=== PATIENT | female | born 1980 ===

== ENCOUNTER → 2018-04-07 | Outpatient (CLI) | payer OTHER ==
--- NOTE | 2018-04-07 13:36 | WOMENS IMAGING REPORT ---
EXAM DESCRIPTION: BILAT DIAGNOSTIC MAMMO W/CAD; U/S BREAST UNILATERAL, COMPL COMPLETED DATE/TIME: 04/07/2018 10:25 am; 04/07/2018 11:01 am REASON FOR STUDY: FIBROCYSTIC BREAST CHANGES OF BOTH BREASTS,N60.11; FIBROCYSTIC BREAST CHANGE, LT BREAST; FIBROCYSTIC BREAST CHANGES, RT BREAST N60.11 DIFFUSE CYSTIC MASTOPATHY OF RIGHT BREAST COMPARISON: None available, prior mammograms are in [place] TECHNIQUE: Standard craniocaudal and mediolateral oblique views of each breast recorded using digita l acquisition. Bilateral 90 mediolateral views Bilateral whole breast ultrasound was also performed LIMITATIONS: None. FINDINGS: RIGHT BREAST MASSES: No suspicious masses. CALCIFICATIONS: No new or suspicious calcifications. ARCHITECTURAL DISTORTION: None. DEVELOPING DENSITY: None. ASYMMETRY: None noted. OTHER: No other significant findings. LEFT BREAST MASSES: No suspicious masses. CALCIFICATIONS: No new or suspicious calcifications. ARCHITECTURAL DISTORTION: None. DEVELOPING DENSITY: None. ASYMMETRY: None noted. OTHER: No other significant finding. Read with the assistance of CAD: .[facility] - R2 Cenova Version 1.3 .[facility] - R2 Cenova Version 1.3 .[facility] - R2 Cenova Version 2.4 .[facility] - R2 Cenova Version 2.4 .[facility] - R2 Certified Forklift Operator Version 9.2 Bilateral breast ultrasound: Patient indicates bilateral breast tenderness with palpable abnormalities. She states she had multip le breast parenchymal cysts on prior ultrasound in [place] within the last 2 years. The entire right breast was image with ultrasound. Dense fibroglandular tissue is present with a 5 m m cyst in the right breast periareolar 6 o'clock position. No other cysts. No masses. No worrisome acoustic absorption. The entire left breast was image with ultrasound. Dense fibroglandular tissue is present. No cysts. No masses. No worrisome acoustic absorption. IMPRESSION: No mammographic or sonographic evidence for malignancy bilaterally. BREAST DENSITY: d. The breasts are extremely dense, which lowers the sensitivity of mammography. BIRAD: 1 Negative. RECOMMENDATION: RECOMMENDED FOLLOW UP: Continue yearly bilateral screening tomosynthesis if possibl e, because of extremely dense fibroglandular tissue bilaterally. SPECIFIC INTERVENTION/IMAGING/CONSULTATION RECOMMENDEDNegative mammography and ultrasound in the sett ing of a suspicious palpable abnormality should not deter biopsy. COMMUNICATION:Patient notified by letter. COMMENT: The patient has been notified of the results by letter per SA requirements. Additional no tification policies are in place for contacting patient with suspicious or incomplete findings. Quality ID #[id number]: The [employer] recommends an annual screening mammogram for women aged 40 years or over. This facility utilizes a reminder system to ensure that all patients receive reminder letters, and/or direct phone calls for appointments. This includes reminders for routine scr eening mammograms, diagnostic mammograms, or other Breast Imaging Interventions when appropriate. Th is patient will be placed in the appropriate reminder system. The [employer] (ACR) has developed recommendations for screening MRI of the breast s in certain patient populations, to be used in conjunction with mammography. Breast MRI surveillanc e may be appropriate for women with more than 20% lifetime risk of developing breast cancer as deter mined by genetic testing, significant family history of the disease, or history of mantle radiation f or Hodgkins Disease. ACR Practice Guidelines 2008. TECHNICAL DOCUMENTATION: FINDING NUMBER: (1) ASSESSMENT: (1) JOB ID: [id number] [employer]- All Rights Reserved Reading location - IP/workstation name: [facility]
--- NOTE | 2018-04-07 13:36 | WOMENS IMAGING REPORT ---
EXAM DESCRIPTION: BILAT DIAGNOSTIC MAMMO W/CAD; U/S BREAST UNILATERAL, COMPL COMPLETED DATE/TIME: 04/07/2018 10:25 am; 04/07/2018 11:01 am REASON FOR STUDY: FIBROCYSTIC BREAST CHANGES OF BOTH BREASTS,N60.11; FIBROCYSTIC BREAST CHANGE, LT BREAST; FIBROCYSTIC BREAST CHANGES, RT BREAST N60.11 DIFFUSE CYSTIC MASTOPATHY OF RIGHT BREAST COMPARISON: None available, prior mammograms are in [place] TECHNIQUE: Standard craniocaudal and mediolateral oblique views of each breast recorded using digita l acquisition. Bilateral 90 mediolateral views Bilateral whole breast ultrasound was also performed LIMITATIONS: None. FINDINGS: RIGHT BREAST MASSES: No suspicious masses. CALCIFICATIONS: No new or suspicious calcifications. ARCHITECTURAL DISTORTION: None. DEVELOPING DENSITY: None. ASYMMETRY: None noted. OTHER: No other significant findings. LEFT BREAST MASSES: No suspicious masses. CALCIFICATIONS: No new or suspicious calcifications. ARCHITECTURAL DISTORTION: None. DEVELOPING DENSITY: None. ASYMMETRY: None noted. OTHER: No other significant finding. Read with the assistance of CAD: .[facility] - R2 Cenova Version 1.3 .[facility] - R2 Cenova Version 1.[address] .[facility] - R2 Cenova Version 2.4 .[facility] - R2 Cenova Version 2.4 .[facility] - R2 Building Cleaner Version 9.2 Bilateral breast ultrasound: Patient indicates bilateral breast tenderness with palpable abnormalities. She states she had multip le breast parenchymal cysts on prior ultrasound in [place] within the last 2 years. The entire right breast was image with ultrasound. Dense fibroglandular tissue is present with a 5 m m cyst in the right breast periareolar 6 o'clock position. No other cysts. No masses. No worrisome acoustic absorption. The entire left breast was image with ultrasound. Dense fibroglandular tissue is present. No cysts. No masses. No worrisome acoustic absorption. IMPRESSION: No mammographic or sonographic evidence for malignancy bilaterally. BREAST DENSITY: d. The breasts are extremely dense, which lowers the sensitivity of mammography. BIRAD: 1 Negative. RECOMMENDATION: RECOMMENDED FOLLOW UP: Continue yearly bilateral screening tomosynthesis if possibl e, because of extremely dense fibroglandular tissue bilaterally. SPECIFIC INTERVENTION/IMAGING/CONSULTATION RECOMMENDEDNegative mammography and ultrasound in the sett ing of a suspicious palpable abnormality should not deter biopsy. COMMUNICATION:Patient notified by letter. COMMENT: The patient has been notified of the results by letter per SA requirements. Additional no tification policies are in place for contacting patient with suspicious or incomplete findings. Quality ID #[id number]: The [employer] recommends an annual screening mammogram for women aged 40 years or over. This facility utilizes a reminder system to ensure that all patients receive reminder letters, and/or direct phone calls for appointments. This includes reminders for routine scr eening mammograms, diagnostic mammograms, or other Breast Imaging Interventions when appropriate. Th is patient will be placed in the appropriate reminder system. The [employer] (ACR) has developed recommendations for screening MRI of the breast s in certain patient populations, to be used in conjunction with mammography. Breast MRI surveillanc e may be appropriate for women with more than 20% lifetime risk of developing breast cancer as deter mined by genetic testing, significant family history of the disease, or history of mantle radiation f or Hodgkins Disease. ACR Practice Guidelines 2008. TECHNICAL DOCUMENTATION: FINDING NUMBER: (1) ASSESSMENT: (1) JOB ID: [id number] [employer]- All Rights Reserved Reading location - IP/workstation name: [facility]
--- NOTE | 2018-04-07 13:36 | WOMENS IMAGING REPORT ---
EXAM DESCRIPTION: BILAT DIAGNOSTIC MAMMO W/CAD; U/S BREAST UNILATERAL, COMPL COMPLETED DATE/TIME: 04/07/2018 10:25 am; 04/07/2018 11:01 am REASON FOR STUDY: FIBROCYSTIC BREAST CHANGES OF BOTH BREASTS,N60.11; FIBROCYSTIC BREAST CHANGE, LT BREAST; FIBROCYSTIC BREAST CHANGES, RT BREAST N60.11 DIFFUSE CYSTIC MASTOPATHY OF RIGHT BREAST COMPARISON: None available, prior mammograms are in [place] TECHNIQUE: Standard craniocaudal and mediolateral oblique views of each breast recorded using digita l acquisition. Bilateral 90 mediolateral views Bilateral whole breast ultrasound was also performed LIMITATIONS: None. FINDINGS: RIGHT BREAST MASSES: No suspicious masses. CALCIFICATIONS: No new or suspicious calcifications. ARCHITECTURAL DISTORTION: None. DEVELOPING DENSITY: None. ASYMMETRY: None noted. OTHER: No other significant findings. LEFT BREAST MASSES: No suspicious masses. CALCIFICATIONS: No new or suspicious calcifications. ARCHITECTURAL DISTORTION: None. DEVELOPING DENSITY: None. ASYMMETRY: None noted. OTHER: No other significant finding. Read with the assistance of CAD: .[facility] - R2 Cenova Version 1.3 .[facility] - R2 Cenova Version 1.3 .[facility] - R2 Cenova Version 2.4 .[facility] - R2 Cenova Version 2.4 .[facility] - R2 Drivability Technician Version 9.2 Bilateral breast ultrasound: Patient indicates bilateral breast tenderness with palpable abnormalities. She states she had multip le breast parenchymal cysts on prior ultrasound in [place] within the last 2 years. The entire right breast was image with ultrasound. Dense fibroglandular tissue is present with a 5 m m cyst in the right breast periareolar 6 o'clock position. No other cysts. No masses. No worrisome acoustic absorption. The entire left breast was image with ultrasound. Dense fibroglandular tissue is present. No cysts. No masses. No worrisome acoustic absorption. IMPRESSION: No mammographic or sonographic evidence for malignancy bilaterally. BREAST DENSITY: d. The breasts are extremely dense, which lowers the sensitivity of mammography. BIRAD: 1 Negative. RECOMMENDATION: RECOMMENDED FOLLOW UP: Continue yearly bilateral screening tomosynthesis if possibl e, because of extremely dense fibroglandular tissue bilaterally. SPECIFIC INTERVENTION/IMAGING/CONSULTATION RECOMMENDEDNegative mammography and ultrasound in the sett ing of a suspicious palpable abnormality should not deter biopsy. COMMUNICATION:Patient notified by letter. COMMENT: The patient has been notified of the results by letter per SA requirements. Additional no tification policies are in place for contacting patient with suspicious or incomplete findings. Quality ID #225: The [employer] recommends an annual screening mammogram for women aged 40 years or over. This facility utilizes a reminder system to ensure that all patients receive reminder letters, and/or direct phone calls for appointments. This includes reminders for routine scr eening mammograms, diagnostic mammograms, or other Breast Imaging Interventions when appropriate. Th is patient will be placed in the appropriate reminder system. The [employer] (ACR) has developed recommendations for screening MRI of the breast s in certain patient populations, to be used in conjunction with mammography. Breast MRI surveillanc e may be appropriate for women with more than 20% lifetime risk of developing breast cancer as deter mined by genetic testing, significant family history of the disease, or history of mantle radiation f or Hodgkins Disease. ACR Practice Guidelines 2008. TECHNICAL DOCUMENTATION: FINDING NUMBER: (1) ASSESSMENT: (1) JOB ID: [id number] [email or web address]- All Rights Reserved Reading location - IP/workstation name: [facility]
== END ==
LOC: WI 10:10
PROVIDERS: ATTEND Nurse Practitioner Family
DX: N60.11 Diffuse cystic mastopathy of right breast (principal)
CPT/HCPCS: 76641; 77066